=== PATIENT | female | born 1985 | race African-American/Black ===

== ENCOUNTER → 2018-07-18 | Outpatient (CLI) | payer MEDICAID | LOC: COL.RAD 12:51 | DX: R09.1 Pleurisy (principal) ==

== ENCOUNTER → 2019-05-27 | Outpatient (CLI) | payer MEDICAID | LOC: COL.RAD 14:28 | DX: R07.81 Pleurodynia (principal); S29.9XXA Unspecified injury of thorax, initial encounter ==